=== PATIENT | female | born 1970 | race Hispanic/Latino ===

== ENCOUNTER 2018-12-11 11:40 | Emergency (ER) | payer OTHER ==
[~2018-12-11] VITALS: Ht 154.9 cm; Wt 152.0 kg
[~2018-12-11 11:40] MED LIST: AZELASTINE137 MCG/0.; ESTRADIOL PO; FLUTICASONE PRO16 GM; METFORMIN HCL1000 MG PO; MONTELUKAST SOD10 MG PO; PROAIR HFA INH8.5 GM INH; SYMBICORT 16010.2 GM INH
--- OUTSIDE RECORDS SUMMARY | 2018-12-11 11:45 | XMS REPORT ---
Author Author [facility] Address Unknown Phone Unavailable Care Team Providers Care Features Editor Name Role Phone Unavailable Unavailable Problems This patient has no known problems. Allergies, Adverse Reactions, Alerts This patient has no known allergies or adverse reactions. Medications This patient has no known medications. Results Test Description Test Time Test Comments Text Results Atomic Results Result Comments BREAST ULTRASOUND BILATERAL 2018-11-06 17:11:45 - DIAG MAMM BILATERAL YOLANDE CAD DIGITALBILATERAL DIGITAL DIAGNOSTIC MAMMOGRAM 3D/2D WITH CAD: 11/06/2018CLINICAL: Diffuse pain, left breast. Digital breast tomosynthesis was performed in addition to routine CC and MLO views. Current mammographic images were evaluated by either a [employer] M-Vu or a [employer] ImageChecker CAD (computer aided detection system). Comparison is made to exams dated 09/21/2017 mammogram, 04/07/2016 mammogram, and 02/19/2015 mammogram - [facility]-. The tissue of both breasts is predominantly fatty. No suspicious mass, architectural distortion, malignant type calcification, or lymph node abnormality detected. INCOMPLETE ASSESSMENT: ADDITIONAL IMAGING EVALUATION RECOMMENDEDUltrasound pending for additional evaluation. Resume annual screening mammography in one year. - BREAST ULTRASOUND BILATERALULTRASOUND OF BOTH BREASTS AND BOTH AXILLA: 11/06/2018Comparison is made to exams dated 09/21/2017 mammogram, 04/07/2016 mammogram, and 02/19/2015 mammogram - [facility]-. Real-time ultrasound of both breasts and both axilla was performed. No abnormalities were seen sonographically in either breast or either axilla. Clinical breast exam was unremarkable.IMPRESSION: NEGATIVE There is no sonographic evidence of malignancy. Resume annual screening mammography in one year. Luz Devries M.D. dm/:11/06/2018 17:11:45 Entry: - 11/11/2018 07:55:17Imaging Technologist: Federica Yoder , [facility]-FWletter sent: BIRADS 1-2 Combo FU Letter Mammogram BI-RADS: 0 Indeterminate Ultrasound BI-RADS: 1 Negative DIAG MAMM BILATERAL YOLANDE CAD DIGITAL 2018-11-06 17:11:45 - DIAG MAMM BILATERAL YOLANDE CAD DIGITALBILATERAL DIGITAL DIAGNOSTIC MAMMOGRAM 3D/2D WITH CAD: 11/06/2018CLINICAL: Diffuse pain, left breast. Digital breast tomosynthesis was performed in addition to routine CC and MLO views. Current mammographic images were evaluated by either a [employer] M-Vu or a [employer] ImageChecker CAD (computer aided detection system). Comparison is made to exams dated 09/21/2017 mammogram, 04/07/2016 mammogram, and [facility]. The tissue of both breasts is predominantly fatty. No suspicious mass, architectural distortion, malignant type calcification, or lymph node abnormality detected. INCOMPLETE ASSESSMENT: ADDITIONAL IMAGING EVALUATION RECOMMENDEDUltrasound pending for additional evaluation. Resume annual screening mammography in one year. - BREAST ULTRASOUND BILATERALULTRASOUND OF BOTH BREASTS AND BOTH AXILLA: 11/06/2018Comparison is made to exams dated 09/21/2017 mammogram, 04/07/2016 mammogram, and [facility]. Real-time ultrasound of both breasts and both axilla was performed. No abnormalities were seen sonographically in either breast or either axilla. Clinical breast exam was unremarkable.IMPRESSION: NEGATIVE There is no sonographic evidence of malignancy. Resume annual screening mammography in one year. Luz Devries M.D. dm/:11/06/2018 17:11:45 Entry: - 11/11/2018 07:55:17Imaging Technologist: Federica Yoder , [facility] BIRADS 1-2 Combo FU Letter Mammogram BI-RADS: 0 Indeterminate Ultrasound BI-RADS: 1 Negative
[2018-12-11 12:49] LABS: BASOPHILS % 0.5 % (0.0-1.0); EOSINOPHILS # (AUTO) 0.1 (0.0-0.4); EOSINOPHILS % 1.6 % (0.0-6.0); HEMATOCRIT 48.1 % (34.2-44.1); HEMOGLOBIN 15.2 g/dL (12.0-16.0); LYMPHOCYTES # (AUTO) 1.2 (1.0-3.2); LYMPHOCYTES % 31.9 % (18.0-39.1); MEAN CORPUSCULAR HEMOGLOBIN 26.2 pg (28-32); MEAN CORPUSCULAR HGB CONC 31.6 g/dL (31-35); MEAN CORPUSCULAR VOLUME 82.9 fL (81-99); MONOCYTES # (AUTO) 0.4 (0.2-0.8); MONOCYTES % 11.4 % (4.4-11.3); NEUTROPHILS % 54.3 % (38.7-80.0); PLATELET COUNT 257 x10e3/uL (140-360); RED CELL DISTRIBUTION WIDTH 16.8 % (11.7-14.4)
[2018-12-11 13:07] LABS: ALANINE AMINOTRANSFERASE 40 IU/L (0-55); ALBUMIN 3.2 g/dL (3.5-5.0); ALBUMIN/GLOBULIN RATIO 0.7 (0.8-2.0); ALKALINE PHOSPHATASE 100 IU/L (40-150); ANION GAP 11.3 mmol/L (8-16); BLOOD UREA NITROGEN 9 mg/dL (7-26); BUN/CREATININE RATIO 12 (6-25); CALCIUM 8.7 mg/dL (8.4-10.2); CARBON DIOXIDE 24 mmol/L (22-29); CHLORIDE 105 mmol/L (98-107); CREATININE, SERUM 0.74 mg/dL (0.57-1.11); EST GLOMERULAR FILTRATION RATE > 60 ML/MIN (60-); GLUCOSE 97 mg/dL (74-118); LIPASE 11 U/L (8-78); MAGNESIUM 2.2 MG/DL (1.3-2.1); POTASSIUM 3.3 mmol/L (3.5-5.1); SODIUM 137 mmol/L (136-145)
[2018-12-11 13:16] LABS: CLARITY,URINE SL CLOUDY (CLEAR); COLOR,URINE YELLOW (YELLOW); LEUKOCYTE ESTERASE ,URINE TRACE (NEGATIVE); NITRITE,URINE NEGATIVE (NEGATIVE); PROTEIN,URINE DIPSTICK 1+ (NEGATIVE)
[2018-12-11 13:17] LABS: BILIRUBIN,URINE NEGATIVE (NEGATIVE); KETONES,URINE NEGATIVE (NEGATIVE); URINE UROBILINOGEN 0.2 mg/dL (0.2 - 1)
[2018-12-11 13:32] LABS: AMORPHOUS SEDIMENT,URINE MODERATE (FEW); BACTERIA,URINE MANY /HPF; EPITHELIAL CELLS,URINE MODERATE /LPF
[2018-12-11] MEDS ORDERED: CEFDINIR300 MG PO (14:54)
[2018-12-11 15:18] VITALS: BP 143/92
== END 2018-12-11 15:27 | disposition home or self-care (01) ==
LOC: ER 11:40
DX: R19.7 Diarrhea, unspecified (principal); N30.91 Cystitis, unspecified with hematuria; E11.9 Type 2 diabetes mellitus without complications; J45.909 Unspecified asthma, uncomplicated; E07.9 Disorder of thyroid, unspecified
CPT/HCPCS: 36415; 80053; 81001; 83690; 83735; 85025; 87086; 99283